=== PATIENT | female | born 1980 | race Caucasian/White ===

== ENCOUNTER → 2018-04-09 | Outpatient (CLI) | payer OTHER | LOC: M.CT 14:54 | DX: K76.0 Fatty (change of) liver, not elsewhere classified (principal); K58.0 Irritable bowel syndrome with diarrhea; R11.0 Nausea; R10.12 Left upper quadrant pain; R10.32 Left lower quadrant pain ==

== ENCOUNTER → 2020-09-02 | Outpatient (CLI) | payer OTHER | LOC: M.ULTRA 14:00 | PROVIDERS: ATTEND Nurse Practitioner Family | DX: M79.601 Pain in right arm (principal); M25.441 Effusion, right hand ==